=== PATIENT | male | born 1960 | race Caucasian/White ===

== ENCOUNTER 2018-06-28 06:23 | Emergency (ER) | payer OTHER ==
[~2018-06-28] VITALS: Ht 175.3 cm; Wt 63.5 kg
[~2018-06-28 06:23] MED LIST: NKM
--- NOTE | 2018-06-28 07:07 | Emergency Room Report ---
History of Present Illness General Chief Complaint: Lower Extremity Injury Source: Patient Present Illness HPI Patient presents with complaints of bilateral knee pain Left knee is worse in the right knee Reports that there was a crack in the sidewalk and he tripped 2 days ago As the pain persisted he presents to the ER Denies any chest pain denies any shortness of breath He had a mild abrasion to the lower aspect of the nose But denies any other head trauma or lapse of consciousness Pain is worse to the lower aspect of the knee on the left side Worse with ambulation Allergies: Coded Allergies: EGG (Verified Allergy, Unknown, 06/28/18) Patient History Past Medical History: see triage record Pertinent Family History: none Reviewed Nursing Documentation: PMH: Agreed; PSxH: Agreed Nursing Documentation-PMH Past Medical History: No History, Except For Hx Seizures: Yes Review of Systems All Other Systems: negative except mentioned in HPI Physical Exam Vital Signs Date Time Temp Pulse Resp B/P (MAP) Pulse Ox O2 Delivery O2 Flow Rate FiO2 06/28/18 06:27 97.5 75 16 120/78 99 Room Air Sp02 EP Interpretation: reviewed, normal General Appearance: well appearing, no apparent distress Head: normocephalic, atraumatic Eyes: bilateral eye PERRL, bilateral eye EOMI ENT: hearing grossly normal, normal pharynx Neck: supple Respiratory: lungs clear, normal breath sounds Cardiovascular #1: regular rate, rhythm Gastrointestinal: non tender, soft Musculoskeletal: other - Ecchymosis bilaterally to the lower patellar and upper tibial region, patient able to flex and extend the knee bilaterally, mild swelling to the left lower patellar as well and abrasions bilaterally Neurologic: alert, oriented x3, responsive, crisis clinician III-XII nml as tested Skin: other - As above Lymphatic: no adenopathy Medical Decision Making Diagnostic Impression: Primary Impression: Injury of lower extremity Additional Impression: Contusion ER Course Given the patient's history and presentation Given the mechanical-type fall imaging studies were obtained On the left knee there is one view showing question will findings on the patella However not visualized on other views Patient is able to bear weight Splint was not required at this time Patient will require repeat imaging of discomfort persist and return to ER more emergently with any change Other X-Ray Diagnostic Results Other X-Ray Diagnostic Results #1: X-Ray ordered: Right knee # of Views/Limited Vs Complete: 4 View Indication: Pain EP Interpretation: Yes Interpretation: no dislocation, no soft tissue swelling, no fractures Impression: No acute disease Electronically Signed by: Yaneth Hand DO Other X-Ray Diagnostic Results #2: X-Ray ordered: Left knee # of Views/Limited Vs Complete: 4 View Indication: Pain EP Interpretation: Yes Interpretation: no dislocation, no soft tissue swelling, other - Nonspecific lucency on one view of the patella, question possible fracture Impression: Other - Question acute pathology on patella possible fracture Electronically Signed by: Yaneth Hand DO Last Vital Signs Date Time Temp Pulse Resp B/P (MAP) Pulse Ox O2 Delivery O2 Flow Rate FiO2 06/28/18 06:27 97.5 75 16 120/78 99 Room Air Status: improved Disposition: HOME, SELF-CARE Condition: Improved Scripts Ibuprofen* (MOTRIN*) 600 Mg Tablet 600 MG ORAL Q8H PRN for For Pain, #20 TAB 0 Refills Prov: Yanteh Hand DO 06/28/18 Additional Instructions: Patient is provided with the discharge instructions notified to follow up with primary doctor in the next 2-3 days otherwise return to the er with any worsening symptoms. Please note that this report is being documented using Animating Touch technology. This can lead to erroneous entry secondary to incorrect interpretation by the dictating instrument. Yaneth Hand DO Jun 28, 2018 07:07
[2018-06-28] MEDS ORDERED: IBUPROFEN600 MG ORAL (08:17)
[2018-06-28 08:20] VITALS: BP 121/75
--- NOTE | 2018-06-28 08:33 | Diagnostic Imaging Report ---
Indication: Knee pain left greater than right Technique: For views of the left knee Comparison: None Findings: On the oblique views, image #3, there is suggestion of a lucency in either the patella or the lateral epicondyles, not confirmed on any other views.. No other evidence of fracture or dislocation. There are chronic periosteal changes of the distal femur. The joint spaces are preserved. No suprapatellar effusion. Impression: Lucency of the patella or lateral epicondyle seen on a single view; significance doubtful but nondisplaced fracture of either the structures not completely excludable. Correlate with clinical findings No other acute abnormality Evidence of chronic periosteal changes of the distal femur, consistent with prior insult, either inflammatory or traumatic Findings discussed by phone with Dr. Hand in the emergency room at the time of interpretation
--- NOTE | 2018-06-28 08:37 | Diagnostic Imaging Report ---
Indication: Knee pain, left greater than right Technique: 4 views of the right knee Comparison: None Findings: No acute fractures. No dislocations. No suprapatellar effusion. The joint spaces are preserved. Impression: Negative
== END 2018-06-28 08:20 | disposition home or self-care (01) ==
LOC: EMR 07:33
DX: S80.02XA Contusion of left knee, initial encounter (principal); S80.01XA Contusion of right knee, initial encounter; S00.31XA Abrasion of nose, initial encounter; W01.0XXA Fall on same level from slipping, tripping and stumbling without subsequent striking against object, initial encounter; Y92.480 Sidewalk as the place of occurrence of the external cause; Z91.012 Allergy to eggs
CPT/HCPCS: 99284